=== PATIENT | female | born 1950 | race Caucasian/White ===

== ENCOUNTER 2020-07-10 23:44 | Outpatient (CLI) | payer SELFPAY | END 2020-07-10 23:45 | disposition EMS.NT | LOC: EMS 23:44 | DX: S91.339A Puncture wound without foreign body, unspecified foot, initial encounter (principal); W20.8XXA Other cause of strike by thrown, projected or falling object, initial encounter; Y93.89 Activity, other specified; Y92.009 Unspecified place in unspecified non-institutional (private) residence as the place of occurrence of the external cause ==

== ENCOUNTER 2020-07-13 11:37 | Outpatient (CLI) | payer MEDICARE, OTHER ==
--- NOTE | 2020-07-13 13:13 | XRAY Report ---
PROCEDURE: Foot 3 View RT INDICATIONS: PAIN IN RIGHT FOOT TECHNIQUE: 3 views of the foot were acquired. COMPARISON: None FINDINGS: Bones: Moderately displaced comminuted fracture of the second metatarsal neck. Periarticular osteophy te formation at the interphalangeal joints of the digits. No suspicious bony lesions. Soft tissues: No tibiotalar joint effusion. Achilles tendon appears normal. IMPRESSION: Second metatarsal fracture. Osteoarthritis. Reviewed by: Regis Zurita MD on 07/13/2020 1:11 PM PDT Approved by: Regis Zurita MD on 07/13/2020 1:11 PM PDT Station ID: [id number]
== END 2020-07-13 11:38 | disposition home or self-care (01) ==
LOC: DI.N 11:37
PROVIDERS: ATTEND Physician Assistant
DX: S92.321A Displaced fracture of second metatarsal bone, right foot, initial encounter for closed fracture (principal); M19.071 Primary osteoarthritis, right ankle and foot